=== PATIENT | female | born 1985 | race Caucasian/White ===

== ENCOUNTER 2022-10-02 00:46 | Day surgery (SDC) | payer OTHER, SELFPAY ==
--- NOTE | 2022-09-18 16:40 | SUR.PREOP ---
Report to the Outpatient Waiting Room, entrance under the green pavilion located off [facility], at time 1200 on date 10/02/22. Planned Procedure Time: 1400. Time changes happen often and if your time is changed the preop area will call you the afternoon before. - You and your visitor will be asked to self-screen and do not enter if you have any COVID symptoms. - Only one visitor is requested with a max of two and NO children visitors are allowed at this time. - The patient visitor may be requested to leave or wait in car when not with patient due to distancing restrictions. - A mask is optional within the hospital. Patients may have clear liquids (water, carbonated beverages, clear teas, apple juice) until 3 hours prior to surgery with a maximum of 20 ounces. - NO CLEAR LIQUIDS AFTER 1100 - No food from midnight until time of surgery - Infants may have breast milk until 4 hours before surgery, infant formula 6 hours prior to surgery. - Children will be allowed to drink immediately following surgery. If applicable, please bring a bottle or sippy cup to assist with drinking. Juice, water, soda, and popsicles are readily available. For infants on formula, please bring formula the day of surgery. Pacifiers are allowed. Please no make-up, nail estonian, hairspray, perfume, deodorant, or body powder the day of surgery. No jewelry (including any body piercings) or valuables the day of surgery, leave them at home. Please take a shower or bath the night before, or the morning of, surgery with an antibacterial soap. Wear comfortable, loose fitting clothing. Children are encouraged to wear pajamas. - Jewelry must be removed prior to entering the operating room. Rings and piercings that are not removed may be cut off. - The hospital will not accept responsibility for valuables. - Please leave all valuables, including medications, at home the day of surgery. If you are going home after surgery, a licensed street flusher driver must drive you home. - NO public transportation without another adult if you receive anesthesia. - We recommend that an adult stay with you for 24 hours following discharge. - We also recommend that you do not drive, make important decision, drink alcoholic beverages, or take any drugs that were not prescribed by your health care provider for at least 24 hours after your discharge time. For Pediatric surgeries, we recommend two adults accompany the child home. Follow any additional instructions given to you from your surgeon. If you or anyone in your household have experienced Covid symptoms in the past week, please notify your surgeon or the nurse liaison at the phone number below for possible testing. Telephone instructions given to HAI FIGUEROA and asked if any additional questions and then verbalized understanding. Patient advised to call surgeon office or pre surgery nurse liaison [phone] if any additional questions.
[2022-09-18 16:53] VITALS: BMI 24.3
[2022-10-02] VITALS (9 sets, daily range): BP systolic 92–125; BP diastolic 57–77; PULSE 55–73; RESP 12–18; TEMP 36.5–36.8; O2SAT 98–100
[2022-10-02] MEDS: GABAPENTIN 300 MG CAPSULE PO (07:10)
[2022-10-02] MEDS: ACETAMINOPHEN 500 MG TABLET 1000 MG PO (07:10)
[2022-10-02] MEDS: LACTATED RINGERS 1,000 ML 30 ML IV CONT ×2 (07:15→10:31)
--- NOTE | 2022-10-02 07:33 | WPDANESEPPF ---
Anes - Initial Pre Proc Eval Procedure: Operation Date: 10/02/22 08:30 Proposed Procedures p Diagnostic Laparoscopy, Bilateral Laparoscopic Salpingectomy, - Colette Collier DO Operation Date: 10/02/22 14:00 Proposed Procedures p Diagnostic Laparoscopy, Bilateral Laparoscopic Salpingectomy, - Colette Collier DO Date/Time: 10/02/22 07:33 Surgeon: Colette Collier DO Pre Op Diagnosis: desires sterilization Patient Data Age: 37 Gender: F Height: 1.73 m Weight: 73.7 kg Last Vital Signs Temp 36.8 C 10/02/22 06:56 Pulse 73 10/02/22 06:56 Resp 16 10/02/22 06:56 BP 108/68 10/02/22 06:56 Pulse Ox 99 10/02/22 06:56 O2 Del Method Room Air 10/02/22 06:56 Allergies Allergy/AdvReac Type Severity Reaction Status Date / Time amoxicillin AdvReac Mild Gastrointestinal Verified 10/02/22 07:06 Upset ampicillin AdvReac Mild Gastrointestinal Verified 10/02/22 07:06 Upset clavulanic acid AdvReac Mild Gastrointestinal Verified 10/02/22 07:06 Upset erythromycin base AdvReac Mild Gastrointestinal Verified 10/02/22 07:06 Upset Home Medications Medication Instructions Recorded Confirmed Type epinephrine 0.3 mg/0.3 mL 0.3 mg subcut PRN PRN Anaphylaxis 09/18/22 09/18/22 History injection, auto-injector montelukast 10 mg tablet 10 mg PO DAILY 09/18/22 10/02/22 History Patient hx anesthesia problems: none Family hx anesthesia problems: none Results Review: All pre-operative results and documents have been reviewed as part of the pre-operative evaluation. [facility] Past Medical History Medical History Anxiety Social History Social History Smoking status: Never smoker Spiritual care concerns: No Anes - Eval Final PreProcedure Day of Procedure 10/02/22 07:33 Patient weight: normal Heart: regular rate and rhythm Lungs: clear to auscultation Airway: Mallampati scale class II Neurological: alert and oriented Last oral intake: >/= 8 hours ASA classification: II Emergent: no Anesthetic plan: proceed Anesthesia type and monitoring: general ETT and standard monitoring Results Review: All pre-operative results and documents have been reviewed as part of the pre-operative evaluation. Informed Consent: The patient's anesthetic plan and its attendant risks and benefits were discussed with the patient/family/POA. Questions were solicited and answers provided to the satisfaction of the patient/family/POA.
--- NOTE | 2022-10-02 07:38 | PM.IMHP ---
H&P: HPI History of Present Illness Date/Time: 10/02/22 07:38 Chief Complaint: I'm here for my surgery Narrative: Patient presents for MARL[facility] ga desiring permanent sterilization Review of Systems Review of Systems: All systems reviewed & are unremarkable except as noted in HPI and below PMFSH Past Medical History Medical History Anxiety Social History Social History Smoking status: Never smoker Spiritual care concerns: No Meds Home Medications and Allergies Home Medications Medication Instructions Recorded Confirmed Type epinephrine 0.3 mg/0.3 mL 0.3 mg subcut PRN PRN Anaphylaxis 09/18/22 09/18/22 History injection, auto-injector montelukast 10 mg tablet 10 mg PO DAILY 09/18/22 10/02/22 History Allergies Allergy/AdvReac Type Severity Reaction Status Date / Time amoxicillin AdvReac Mild Gastrointestinal Verified 10/02/22 07:06 Upset ampicillin AdvReac Mild Gastrointestinal Verified 10/02/22 07:06 Upset clavulanic acid AdvReac Mild Gastrointestinal Verified 10/02/22 07:06 Upset erythromycin base AdvReac Mild Gastrointestinal Verified 10/02/22 07:06 Upset Vital Signs Vital Signs - 24 hr 10/02/22 06:56 Temperature 36.8 C Pulse Rate 73 Respiratory Rate 16 Blood Pressure 108/68 Pulse Oximetry 99 Oxygen Delivery Room Air Exam Const: General: comfortable and no acute distress Eyes: General: appearance normal, both eyes and all related structures Neck: Neck: supple Resp: Effort & Inspection: normal respiratory effort Auscultation: clear to auscultation bilaterally Cardio: Rate: regular rate Rhythm: regular rhythm GI: GI Palp: Yes Soft to palpation Auscultation: normal bowel sounds Skin: General skin exam: normal color and no rashes or lesions noted Neuro: General: gait normal Speech: normal speech Motor exam (neuro): 5/5 motor strength present throughout Extrem: General: normal to inspection Psych: Mental Status: mental status grossly normal Affect: normal affect Assessment and Plan Assessment and plan (1) Sterilization: Code(s): Z30.2 - Encounter for sterilization Status: Acute Plan Diagnostic laparoscopy, bilateral salpingectomy
--- NOTE | 2022-10-02 07:41 | WPDHPUPDATE1 ---
History and Physical Update Update Date/Time: 10/02/22 07:41 History and Physical has been reviewed, including an updated exam of the patient. There are NO changes in the patient's condition. Risks, benefits, and alternatives have been discussed and questions answered. Patient agrees to proceed with procedure.
[2022-10-02] MEDS: BUPIVACAINE HCL 0.25% PF 30 ML VIAL INFILTRATE (09:21)
[2022-10-02] MEDS: KETOROLAC 15 MG/ML VIAL (*BKC) IV PUSH (09:42)
--- NOTE | 2022-10-02 09:43 | W.PM.PROC2 ---
Procedure Note - Detailed Date of Procedure 10/02/22 Pre-op Diagnosis desires sterilization Post-op Diagnosis Same Procedure Performed Diagnostic laparoscopy, bilateral salpingectomy Surgeon Colette Collier, DO Anesthesia General Indications Undesired fertility, desires permanent sterilization Findings Normal appearing vulva and vaginal canal. Medium-sized cervix. Stenosis of the cervical canal. Internally, the bowel, gallbladder, liver and stomach appeared grossly normal. The right ovary contained a small simple cyst. The left ovary was normal. The uterus posterior cul-de-sac and tubes were unremarkable. There was a small cigarette andrade style endometriosis lesion on the left side of the bladder flap. Description of Procedure The patient was taken to the operating room where she was placed under general anesthesia. She was prepped and draped in the normal sterile fashion in the dorsal lithotomy position. No preoperative antibiotics were indicated. A time-out was performed and a speculum was placed in the vagina. The anterior lip was grasped with a long Allis clamp. I attempted to dilate the cervix but was met with severe resistance which was not amenable to dilation. The placement of the uterine manipulator was then abandoned and a sponge stick was placed in the vagina. Gloves were changed and attention was then turned to the abdomen. The skin above the umbilicus was grasped with 2 penetrating towel clamps and injected with local. A small incision was made and the skin was tented up as the Veress needle was introduced. A saline water drop test was performed to confirm intraperitoneal placement. Once this was confirmed CO2 insufflation was started and the abdomen was brought to a filling pressure of 15 mmHg. Once the abdomen was insufflated, the Veress needle was removed and replaced with a 5 mm Optiview trocar which was inserted under direct visualization. Survey of the abdomen revealed no evidence of bowel or vascular injury upon entry. The organs were as described above. The patient was placed in steep Trendelenburg position and additional trocar sites in the right and left lower quadrants were identified and injected. Small incisions were made and 5 mm trocars were introduced under direct visualization. The right tube was grasped and elevated and was cauterized and transected off using the LigaSure. This was passed off through the assistant executive housekeeper port. The procedure was repeated in identical fashion on the left-hand side. A small lesion on the bladder flap was ablated using the monopolar hook. The surgical pedicles were reinspected and found to be hemostatic. The instruments and trocars were removed and the CO2 gas was allowed to escape. The incision sites were closed with subcuticular 4-0 Monocryl and covered with skin glue. The sponge stick was removed from the vagina. The patient was taken to the recovery room in stable condition. All instrument and sponge counts were correct at the conclusion of the procedure. Estimated Blood Loss 5 Pathology Yes Complications No immediate complications Condition Stable Disposition PACU
--- NOTE | 2022-10-02 10:32 | SUR.PHASEI ---
1031: Simple mask removed.
[2022-10-02] MEDS: oxyCODONE HCL (*CRX) 5 MG TAB IR PO (11:11)
== END 2022-10-02 12:00 | disposition home or self-care (01) ==
PROVIDERS: Visit Provider Obstetrics & Gynecology Gynecologic Oncology
PROC: (CPT 49320; principal; 2022-10-02 08:30)
DX: Z30.2 Encounter for sterilization (principal); N83.291 Other ovarian cyst, right side; N80.30 Endometriosis of pelvic peritoneum, unspecified; N83.8 Other noninflammatory disorders of ovary, fallopian tube and broad ligament
CPT/HCPCS: 58661; 58662; 88302; A9270; J1100; J1885; J2250; J2405; J2704; J2710; J3010; J7120